=== PATIENT | female | born 1995 | race Two or more races ===

== ENCOUNTER 2022-11-19 14:22 | Emergency (ER) | payer OTHER ==
[~2022-11-19] VITALS: Ht 165.1 cm; Wt 83.5 kg
== END 2022-11-19 18:32 | disposition home or self-care (01) ==
LOC: ER 14:22
DX: O21.0 Mild hyperemesis gravidarum (principal); Z3A.14 14 weeks gestation of pregnancy

== ENCOUNTER 2023-05-10 10:00 | Outpatient (CLI) | payer OTHER | END 2023-05-10 11:42 | disposition home or self-care (01) | LOC: NST 10:00 | PROVIDERS: ATTEND Obstetrics & Gynecology | DX: Z34.83 Encounter for supervision of other normal pregnancy, third trimester (principal) ==

== ENCOUNTER 2023-05-15 06:02 | Inpatient (IN) | payer OTHER ==
[~2023-05-15] VITALS: Ht 165.1 cm; Wt 95.3 kg
[2023-05-15] MEDS ORDERED: PRENATAL TABLE1 EAC4 PO (09:11)
== END 2023-05-17 14:22 | disposition home or self-care (01) | DRG 807 ==
LOC: LDR 06:02 → OB/GYN 12:26
PROVIDERS: Obstetrics & Gynecology; ADMIT Obstetrics & Gynecology; ATTEND Obstetrics & Gynecology
PROC: 10E0XZZ Delivery of Products of Conception, External Approach (ICD-10-PCS; principal; 2023-05-15)
PROC: 0KQM0ZZ Repair Perineum Muscle, Open Approach (ICD-10-PCS; 2023-05-15)
PROC: 4A1HXCZ Monitoring of Products of Conception, Cardiac Rate, External Approach (ICD-10-PCS; 2023-05-15)
DX: O70.1 Second degree perineal laceration during delivery (principal); Z37.0 Single live birth; Z3A.40 40 weeks gestation of pregnancy; Z20.822 Contact with and (suspected) exposure to COVID-19

== ENCOUNTER 2023-06-29 20:26 | Emergency (ER) | payer OTHER ==
[~2023-06-29] VITALS: Ht 165.1 cm; Wt 90.7 kg
[~2023-06-29 20:26] MED LIST: PRENATAL TABLE1 EAC4 PO
[2023-06-29 21:52] LABS: HEMATOCRIT 38.2 % (36.0-45.00); MEAN CELL VOLUME 86.5 fL (80.00-100.00); MEAN CORPUSCULAR HEMOGLOBIN 29.5 pg (27.00-32.0); MEAN CORPUSCULAR HGB CONC 34.1 g/dl (32.0-36.0); PLATELET COUNT 261 K/uL (150-450); RED BLOOD COUNT 4.41 M/uL (4.00-6.00); RED CELL DISTRIBUTION WIDTH 14.8 % (11.5-14.5)
[2023-06-29 22:14] LABS: CALCIUM 9.5 mg/dL (8.5-10.1); CREATININE SERUM 0.99 mg/dL (0.55-1.02); GFR 67.8; POTASSIUM 4.02 mEq/L (3.5-5.1)
[2023-06-29 23:15] LABS: PH,URINE 5.5 (5.0-8.0); URINE APPEARANCE Clear; URINE BACTERIA 1026.8 uL (0.0-1933); URINE BILIRRUBIN Negative (NEGATIVE); URINE BLOOD Moderate; URINE COLOR Yellow; URINE EPITHELIAL CELLS 25.3 uL (0.0-38.8); URINE GLUCOSE Negative (NEGATIVE); URINE LEUKOCYTE Negative; URINE NITRATE Negative; URINE PROTEIN Negative (NEGATIVE); URINE RBC 8.3 uL (0.0-20.8); URINE UROBILINOGEN 0.2 E.U./dl; URINE WBC 11.4 uL (0.0-23.2)
[2023-06-30] MEDS ORDERED: ZOFRAN8 MG PO (03:09)
[2023-06-30] MEDS ORDERED: LEVSIN/SL0.125 MG SL (03:09)
[2023-06-30] MEDS ORDERED: PEPCID AC20 MG PO (03:09)
== END 2023-06-30 03:43 | disposition home or self-care (01) ==
LOC: ER 20:26
PROVIDERS: Emergency Medicine
DX: R10.84 Generalized abdominal pain (principal); K29.70 Gastritis, unspecified, without bleeding

== ENCOUNTER 2023-07-28 03:07 | Emergency (ER) | payer OTHER ==
[~2023-07-28] VITALS: Ht 165.1 cm; Wt 87.5 kg
[~2023-07-28 03:07] MED LIST changes: +LEVSIN/SL0.125 MG SL; +PEPCID AC20 MG PO; +ZOFRAN8 MG PO
[2023-07-28 04:11] LABS: HEMATOCRIT 36.7 % (36.0-45.00); MEAN CORPUSCULAR HEMOGLOBIN 28.1 pg (27.00-32.0); MEAN CORPUSCULAR HGB CONC 32.6 g/dl (32.0-36.0); PLATELET COUNT 239 K/uL (150-450); RED BLOOD COUNT 4.26 M/uL (4.00-6.00); RED CELL DISTRIBUTION WIDTH 14.2 % (11.5-14.5)
[2023-07-28 04:21] LABS: ALBUMIN 3.7 gm/dL (3.4-5.0); ALKALINE PHOSPHATASE 96 U/L (50-136); ALT/SGPT 60 U/L (12-78); AMYLASE 90 U/L (25-115); ANION GAP 8 (10.0-20.0); AST/SGOT 75 U/L (15-37); BILIRUBIN,CONJUGATED < 0.10 mg/dL (0.0-0.2); BLOOD UREA NITROGEN 18 mg/dL (7-18); BUN CREA RATIO 19 (7.0-25.0); CALCIUM 9.3 mg/dL (8.5-10.1); CARBON DIOXIDE 27 mEq/L (21-32); CHLORIDE 110 mmol/L (98-107); CREATININE SERUM 0.94 mg/dL (0.55-1.02); GFR 71.98; GLOBULINA 3.5 G/DL (2.4-3.5); GLUCOSE FASTING 100 mg/dL (65-100); LIPASE 61 U/L (13-75); OSMOLALITY SERUM 283 MOSM/KG (275-295); POTASSIUM 4.38 mEq/L (3.5-5.1); SODIUM 141 mmol/L (136-145); TOTAL PROTEIN 7.2 gm/dL (6.4-8.2)
== END 2023-07-28 04:44 | disposition home or self-care (01) ==
LOC: ER 03:07
PROVIDERS: General Practice
DX: K80.50 Calculus of bile duct without cholangitis or cholecystitis without obstruction (principal)

== ENCOUNTER 2025-04-30 13:56 | Outpatient (CLI) | payer OTHER | END 2025-04-30 14:52 | disposition home or self-care (01) | LOC: NST 13:56 | PROVIDERS: ATTEND Obstetrics & Gynecology Gynecology | DX: Z34.83 Encounter for supervision of other normal pregnancy, third trimester (principal) ==

== ENCOUNTER 2025-05-14 15:15 | Inpatient (IN) | payer OTHER ==
[~2025-05-14] VITALS: Ht 165.1 cm; Wt 99.8 kg
[2025-05-31] VITALS (7 sets, daily range): BP systolic 114–129; BP diastolic 66–85
[2025-05-31] MEDS ORDERED: RINGERS SOLUTION,LACTATED 1,000 ML IV SCH (08:45)
[2025-05-31] MEDS ORDERED: OXYTOCIN 500 ML IV ONE (08:45)
[2025-05-31] MEDS ORDERED: MORPHINE SULFATE 4 MG/ML VIAL IV PRN (08:45)
[2025-05-31 09:19] LABS: BASO % 0.2 % (0.1-1.2); EOS # 0.04 (0.04-0.54); EOS % 0.4 % (0.7-7.0); LYMPH # 1.71 (1.18-3.74); LYMPH % 16.8 % (19.3-53.1); MEAN PLATELET VOLUME 10.70 fl (9.4-12.4); MONO # 0.93 (0.24-0.82); MONO % 9.1 % (4.7-12.5); NEUT # 7.43 (1.56-6.13); NEUT % 73.0 % (34.0-71.1); RED CELL DISTRIBUTION WIDTH 14.2 % (11.6-14.4)
[2025-05-31 09:51] LABS: INR < 0.93
[2025-05-31] MEDS ORDERED: CHLORHEXIDINE GLUCONATE 120 ML BOTTLE TP SCH (11:15)
[2025-05-31] MEDS ORDERED: OXYTOCIN 1,000 ML IV ONE (11:15)
[2025-05-31] MEDS ORDERED: SENNA/DOCUSATE SODIUM 1 TAB TABLET PO SCH (21:00)
[2025-06-01] VITALS: BP 105/65
[2025-06-01 07:01] LABS: BASO % 0.2 % (0.1-1.2); EOS # 0.10 (0.04-0.54); EOS % 0.8 % (0.7-7.0); LYMPH # 2.11 (1.18-3.74); LYMPH % 17.5 % (19.3-53.1); MEAN PLATELET VOLUME 10.50 fl (9.4-12.4); MONO # 1.11 (0.24-0.82); MONO % 9.2 % (4.7-12.5); NEUT # 8.63 (1.56-6.13); NEUT % 71.8 % (34.0-71.1); RED CELL DISTRIBUTION WIDTH 14.2 % (11.6-14.4)
[2025-06-01 08:08] VITALS: BP 107/68
[2025-06-01] MEDS ORDERED: PNV,CALCIUM 72/IRON/FOLIC ACID 1 TAB TABLET PO SCH (09:00)
[2025-06-01 16:15] VITALS: BP 108/73
[2025-06-02 01:33] VITALS: BP 100/63
== END 2025-06-02 13:47 | disposition home or self-care (01) | DRG 807 ==
LOC: OB/GYN 05-30 15:15 → LDR 05-31 08:21 → OB/GYN 05-31 12:24
PROVIDERS: ADMIT Obstetrics & Gynecology Gynecology; ATTEND Obstetrics & Gynecology Gynecology
PROC: 10E0XZZ Delivery of Products of Conception, External Approach (ICD-10-PCS; principal; 2025-05-31)
PROC: 4A1HXCZ Monitoring of Products of Conception, Cardiac Rate, External Approach (ICD-10-PCS; 2025-05-31)
DX: O80 Encounter for full-term uncomplicated delivery (principal); Z37.0 Single live birth; Z3A.40 40 weeks gestation of pregnancy

== ENCOUNTER → 2025-05-28 | Outpatient (CLI) | payer OTHER | END | disposition home or self-care (01) | LOC: NST 10:50 | PROVIDERS: ATTEND Obstetrics & Gynecology Gynecology | DX: Z34.83 Encounter for supervision of other normal pregnancy, third trimester (principal) ==

== ENCOUNTER 2025-05-30 11:15 | Outpatient (CLI) | payer OTHER | END 2025-05-30 11:50 | disposition home or self-care (01) | LOC: NST 11:15 | PROVIDERS: ATTEND Obstetrics & Gynecology Gynecology | DX: Z34.83 Encounter for supervision of other normal pregnancy, third trimester (principal) ==